=== PATIENT | male | born 1990 | race Caucasian/White ===

== ENCOUNTER 2021-11-15 07:49 | Emergency (ER) | payer OTHER ==
[2021-11-15 09:13] LABS: HEMOGLOBIN 14.8 gm/dl (14.0-17.5); RED BLOOD COUNT 4.84 M/UL (4.20-5.50); WHITE BLOOD COUNT 6.9 K/UL (4.5-11.0)
[2021-11-15 09:46] LABS: BUN/CREATININE RATIO 19 (0-10)
[2021-11-15] MEDS ORDERED: BENTYL 20MG TAB20 MG PO (12:39)
[2021-11-15] MEDS ORDERED: ZOFRAN 4 MG TAB4 MG PO (12:39)
== END 2021-11-15 13:15 | disposition home or self-care (01) ==
LOC: ER1 07:49
PROVIDERS: Physician Assistant Medical
DX: K52.9 Noninfective gastroenteritis and colitis, unspecified (principal); K21.9 Gastro-esophageal reflux disease without esophagitis; E10.9 Type 1 diabetes mellitus without complications; Z79.899 Other long term (current) drug therapy
CPT/HCPCS: 80053; 81001; 85025; 85652; 86140; 96374; 99284; J2405; Q9967